=== PATIENT | female | born 1995 | race Two or more races ===

== ENCOUNTER → 2016-11-29 | Outpatient (CLI) | payer MEDICAID ==
[2016-11-29 11:28] LABS: ABSOLUTE EOSINOPHILS # (AUTO) 0.1 10^3/uL (0.0-0.6); ABSOLUTE LYMPHOCYTES (AUTO) 2.1 10^3/uL (0.5-4.7); ABSOLUTE MONOCYTES (AUTO) 0.4 10^3/uL (0.1-1.4); ABSOLUTE NEUT (AUTO) 4.6 10^3/uL (1.7-8.2); BASOPHILS % (AUTO) 0.3 % (0-2); EOSINOPHILS % (AUTO) 1.6 % (0-6); HEMATOCRIT 33.9 % (36.0-47.0); HEMOGLOBIN 11.3 g/dL (12.0-15.5); LYMPHOCYTES % (AUTO) 29.1 % (13-45); MEAN CORPUSCULAR HEMOGLOBIN 24.7 pg (27.0-33.4); MEAN CORPUSCULAR HGB CONC 33.4 g/dL (32.0-36.0); MEAN CORPUSCULAR VOLUME 74 fl (80-97); MONOCYTES % (AUTO) 5.4 % (3-13); RED BLOOD COUNT 4.59 10^6/uL (3.72-5.28); RED CELL DISTRIBUTION WIDTH 15.6 % (11.5-14.0); SEGMENTED NEUTROPHILS % (AUTO) 63.6 % (42-78); WHITE BLOOD COUNT 7.2 10^3/uL (4.0-10.5)
[2016-11-29 12:11] LABS: ERYTHROCYTE SEDIMENTATION RATE 57 mm/hr (0-20)
[2016-12-01 07:09] LABS: CYCLIC CITRUL PEPTIDE IGG/A AB 5 units (0-19)
== END ==
LOC: OD 10:38
PROVIDERS: ATTEND Orthopaedic Surgery
DX: M25.50 Pain in unspecified joint (principal)
CPT/HCPCS: 36415; 85025; 85652; 86038; 86140; 86200; 86430

== ENCOUNTER 2017-07-06 14:15 | Emergency (ER) | payer MEDICAID ==
--- NOTE | 2017-07-06 14:38 | ER Document Report ---
ED Medical Screen (RME) - General Chief Complaint: Vaginal Pain Stated Complaint: ABDOMINAL PAIN/VAGINAL BLEEDING Time Seen by Provider: 07/06/17 14:31 Notes: 22-year-old female patient reports having vaginal pain and burning when she inserted a tampon 2-3 days ago, and pain when she removed the tampon. She also reports having more clots with heavy bleeding. She reports intermittent fever this morning. She states there is a possibility she could be . She is not aware of any blisters in the vaginal area, however she does state that she has bumps on her proximal inner thighs which she took was told was due to inflamed hair follicles related to shaving. I have greeted and performed a rapid initial assessment of this patient. A comprehensive ED assessment and evaluation of the patient, analysis of test results and completion of the medical decision making process will be conducted by additional ED providers. TRAVEL OUTSIDE OF THE [place] IN LAST 30 DAYS: No - Related Data Allergies/Adverse Reactions: No Known Allergies Allergy (Verified 07/06/17 14:30) Past Medical History - Social History Chew tobacco use (# tins/day): No Frequency of alcohol use: None Drug Abuse: None Pulmonary Medical History: Reports: Hx Bronchitis Renal/ Medical History: Denies: Hx Peritoneal Dialysis Past Surgical History: Reports: Hx Tonsillectomy - Immunizations Immunizations up to date: Yes Hx Diphtheria, Pertussis, Tetanus Vaccination: Yes Physical Exam - Vital signs Vitals: Temp Pulse Resp BP Pulse Ox 98.7 F 78 16 120/75 100 07/06/17 14:28 07/06/17 14:28 07/06/17 14:28 07/06/17 14:28 07/06/17 14:28 Course - Vital Signs Vital signs: Temp Pulse Resp BP Pulse Ox 98.7 F 78 16 120/75 100 07/06/17 14:28 07/06/17 14:28 07/06/17 14:28 07/06/17 14:28 07/06/17 14:28
--- NOTE | 2017-07-06 14:54 | ER Document Report ---
ED General - General Chief Complaint: Vaginal Pain Stated Complaint: ABDOMINAL PAIN/VAGINAL BLEEDING Time Seen by Provider: 07/06/17 14:31 Mode of Arrival: Ambulatory Information source: Patient Notes: Patient presents emergency department with reports of vaginal burning, vaginal bleeding and fever starting. Patient reports for the past 2 days she has been bleeding. She reports her last menstrual period was in February. She reports irregular menses. She reports she is sexually active with multiple partners occasionally using condoms. She reports she has had large clots and is afraid she is . She reports abdominal cramping for which she is taking Midol and Tylenol and had very little relief from the cramps. Reports motrin early this morning. She denies nausea vomiting diarrhea. She reports history anxiety. Patient has not done any home test. She denies pain with void. She denies urinary frequency. TRAVEL OUTSIDE OF THE [place] IN LAST 30 DAYS: No - HPI Onset: Other - 2 days Onset/Duration: Persistent Quality of pain: Cramping Severity: Severe Pain Level: 4 Associated symptoms: None Exacerbated by: Denies Relieved by: Denies Similar symptoms previously: No Recently seen / treated by doctor: No - Related Data Allergies/Adverse Reactions: No Known Allergies Allergy (Verified 07/06/17 14:30) Past Medical History - General Information source: Patient - Social History Smoking Status: Unknown if Ever Smoked Chew tobacco use (# tins/day): No Frequency of alcohol use: None Drug Abuse: None Family History: Reviewed & Not Pertinent Patient has suicidal ideation: No Patient has homicidal ideation: No Pulmonary Medical History: Reports: Hx Bronchitis Renal/ Medical History: Denies: Hx Peritoneal Dialysis Past Surgical History: Reports: Hx Tonsillectomy - Immunizations Immunizations up to date: Yes Hx Diphtheria, Pertussis, Tetanus Vaccination: Yes Review of Systems - Review of Systems Notes: Review HPI for review of systems., All other systems negative Physical Exam - Vital signs Vitals: Temp Pulse Resp BP Pulse Ox 98.7 F 78 16 120/75 100 07/06/17 14:28 07/06/17 14:28 07/06/17 14:28 07/06/17 14:28 07/06/17 14:28 - Notes Notes: PHYSICAL EXAMINATION: GENERAL: Well-appearing and in no acute distress HEAD: Atraumatic, normocephalic. EYES: Pupils equal round, extraocular movements intact, sclera anicteric, conjunctiva are normal. ENT: nares patent, oropharynx clear without exudates. Moist mucous membranes. NECK: Normal range of motion, supple without lymphadenopathy LUNGS: CTAB and equal. No wheezes rales or rhonchi. HEART: Regular rate and rhythm without murmurs ABDOMEN: Soft, no tenderness. No guarding, no rebound BACK: Denies pain EXTREMITIES: Normal range of motion, no pitting edema. No cyanosis. NEUROLOGICAL: Cranial nerves grossly intact. Normal sensory/motor exams. PSYCH: Normal mood, normal affect. SKIN: Warm, Dry, normal turgor, no rashes or lesions noted - Genitourinary External exam: Normal Speculum exam: Normal Vaginal bleeding: Moderate Bimanuel exam: Normal Course - Re-evaluation Re-evalutation: 07/06/17 Patient instructed on negative wet mount, GC chlamydia pending. Patient instructed she will be notified by phone if anything is positive and she is to return for medication. Patient was also instructed on negative . Bleeding most likely her menses. She was instructed to follow-up with her PROCESS SAFETY ENGINEER or the health department. Patient verbalized understanding to all instructions. - Vital Signs Vital signs: Temp Pulse Resp BP Pulse Ox 98.7 F 75 16 114/72 98 07/06/17 16:36 07/06/17 16:36 07/06/17 16:36 07/06/17 16:36 07/06/17 16:36 - Laboratory Laboratory results interpreted by me: 07/06/17 14:35 Urine Protein >=500 H Urine Blood MODERATE H Procedures - Pelvic Exam Pelvic exam Cultures obtained: Yes Wet prep obtained: Yes Herpes culture obtained: No POC sent to lab: No Foreign body removed: No Bimanual exam performed: Yes Witnessed by: shey OLSEN Discharge - Discharge Clinical Impression: Vaginal bleeding, Vaginal burning Condition: Stable Disposition: HOME, SELF-CARE Instructions: [facility], [facility] [place], Vaginal Bleeding ([facility]) Additional Instructions: *You have been evaluated for vaginal burning, vaginal bleeding *You will be contacted should the cultures come back positive for an STD *Follow up with your LOAN SERVICING SPECIALIST or the health department for recheck within one week *Use condoms during sexual intercourse- protect your partner and yourself *Return to ED for worsening condition, changes, needs Referrals: AVNI MORROW MD [Primary Care Provider] - Follow up in 3-5 days
[2017-07-06 15:32] LABS: BILIRUBIN,URINE NEGATIVE (NEGATIVE); GLUCOSE, URINE NEGATIVE (NEGATIVE); KETONES,URINE NEGATIVE (NEGATIVE); LEUKOCYTE ESTERASE,URINE NEGATIVE (NEGATIVE); NITRITE,URINE NEGATIVE (NEGATIVE); PROTEIN,URINE >=500 mg/dL (NEGATIVE); URINE SPECIFIC GRAVITY 1.024; UROBILINOGEN,URINE NEGATIVE mg/dL (<2.0)
[2017-07-06 15:33] LABS: APPEARANCE,URINE TURBID; COLOR,URINE RED
[2017-07-06 15:50] LABS: RBCS (WET MOUNT) 4+ RBCS SEEN; T.VAGINALIS (WET MOUNT) NO TRICHOMONAS SEEN; WBCS (WET MOUNT) RARE WBCS SEEN; YEAST (WET MOUNT) NO YEAST SEEN
[2017-07-06 16:37] VITALS: BP 114/72
[2017-07-06 17:13] LABS: CHLAM PCR NOT DETECTED (NOT DETECT); GON PCR NOT DETECTED (NOT DETECT)
== END 2017-07-06 16:49 | disposition home or self-care (01) ==
LOC: ER 14:15
DX: N93.9 Abnormal uterine and vaginal bleeding, unspecified (principal); N92.6 Irregular menstruation, unspecified; R10.2 Pelvic and perineal pain; R50.9 Fever, unspecified
CPT/HCPCS: 81001; 81025; 87210; 87491; 87591; 99283

== ENCOUNTER 2019-03-21 15:42 | Emergency (ER) | payer OTHER ==
[2019-03-21 15:58] VITALS: BP 110/55
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
== END 2019-03-21 17:10 | disposition home or self-care (01) ==
LOC: ER 15:42
DX: M54.2 Cervicalgia (principal); V87.7XXA Person injured in collision between other specified motor vehicles (traffic), initial encounter; Z87.891 Personal history of nicotine dependence
CPT/HCPCS: 99283